=== PATIENT | male | born 1970 | race Hispanic/Latino ===

== ENCOUNTER 2023-08-26 22:08 | Emergency (ER) | payer BC, OTHER ==
[~2023-08-26] VITALS: Ht 172.7 cm; Wt 79.4 kg
[2023-08-26] MEDS ORDERED: AMIODARONE 150MG VIAL IV ONE (22:09)
[2023-08-26 22:20] VITALS: O2SAT 90
[2023-08-26] MEDS: NOREPINEPHRIN 4MG/NS 250ML 250 ML IV SCH (22:30)
[2023-08-26 22:31] LABS: ABG BASE EXCESS -18.3 mmol/L (-2.0-3.0); ABG HCO3 12.3 mmol/L (21.0-28.0); ABG OXYGEN SATURATION 85.1 % (95.0-99.0); ABG PCO2 48 mmHg (35-48); ABG PH 7.032 (7.35-7.450); CARBON MONOXIDE 0.2; DEVICE COMMENT BUFFA; HHb 14.8; PO2, ARTERIAL BG 70.6 mmHg (83.0-108.0); VENT MODE, BG ACVC (ROOM AIR)
[2023-08-26 22:33] LABS: BASOPHILS # (AUTO) 0.06 K/uL (0.00-0.20); BASOPHILS % (AUTO) 0.5 % (0.0-5.0); EOSINOPHILS # (AUTO) 0.01 K/uL (0.00-0.70); EOSINOPHILS % (AUTO) 0.1 % (0.0-8.0); HEMATOCRIT 48.4 % (42-54); IMMATURE GRANULOCYTE ABSOLUTE 0.11 K/uL (0-1); LYMPHOCYTES # (AUTO) 4.4 K/uL (1.0-4.8); LYMPHOCYTES % (AUTO) 37.6 % (21.0-51.0); MEAN CORPUSCULAR HEMOGLOBIN 29.7 pg (27.0-33.0); MEAN CORPUSCULAR HGB CONC 33.3 g/dL (32.0-36.0); MEAN CORPUSCULAR VOLUME 89.1 fL (79-99); MONOCYTES % (AUTO) 8.5 % (3.0-13.0); NEUTROPHILS # (AUTO) 6.1 K/uL (1.8-7.7); NEUTROPHILS % (AUTO) 52.4 % (40.0-77.0); PLATELET COUNT (AUTO) 418 K/uL (130-400); RED BLOOD CELL COUNT(AUTO) 5.43 MIL/uL (4.50-6.20); RED CELL DISTRIBUTION WIDTH 13.3 % (11.0-15.5); WHITE BLOOD COUNT (AUTO) 11.7 K/uL (4.8-10.8)
[2023-08-26 22:40] LABS: CARBON DIOXIDE 27 mmol/L (21-32); CHLORIDE 101 mmol/L (101-111); CREATININE 1.4 mg/dL (0.5-1.3); GLOMERULAR FILTR. RATE CALC 59 mL/min (>90); GLUCOSE,RANDOM 141 mg/dL (70-105); SODIUM SERUM 140 mmol/L (136-145); UREA NITROGEN, BLOOD 15 mg/dL (7-18)
[2023-08-26 22:45] LABS: ALANINE AMINOTRANSFERASE 23 U/L (12-78); ALBUMIN 3.8 g/dL (3.5-5.0); ALCOHOL, BLOOD < 3 mg/dL (0-10); ASPARTATE AMINOTRANSFERASE 17 U/L (10-37); BILIRUBIN,TOTAL 0.4 mg/dL (0.2-1.0); CREATINE KINASE, TOTAL 89 U/L (21-232); TOTAL PROTEIN, SERUM 8.1 g/dL (6.0-8.3)
[2023-08-26 22:52] LABS: INR <= 0.93 (0.85-1.15); PROTHROMBIN TIME 10.5 SEC (9.6-11.6)
[2023-08-26 22:53] LABS: PARTIAL THROMBOPLASTIN TIME 25.2 SEC (26.3-35.5)
[2023-08-26] MEDS: CEFTRIAXONE 2GM VIAL IVPB ONE (23:00)
[2023-08-26] MEDS: MIDAZOLAM HCL 1 MG/ML 2ML VIAL IVP ONE ×2 (23:00→23:30)
[2023-08-26 23:08] LABS: MAGNESIUM 2.3 mg/dL (1.80-2.40); THYROID STIMULATING HORMONE 7.86 uIU/mL (0.36-3.74)
[2023-08-26 23:10] LABS: B-TYPE NATRIURETIC PEPTIDE 21 pg/mL (0-100)
[2023-08-26 23:17] LABS: ABG HCO3 15.9 mmol/L (21.0-28.0); ABG PCO2 39 mmHg (35-48); PO2, ARTERIAL BG 94.7 mmHg (83.0-108.0); VENT MODE, BG ACVC (ROOM AIR)
[2023-08-26] MEDS: LEVETIRACETAM 500 MG/5 ML SD VIAL IV SCH (23:20)
[2023-08-26] MEDS: MIDAZOLAM HCL 50 MG in 0.9%NACL 50ML 50 ML IV SCH (23:30)
[2023-08-26 23:56] LABS: AMPHET/METH SCREEN,URINE POSITIVE (NEGATIVE); BARBITURATE SCREEN, URINE NEGATIVE (NEGATIVE); BENZODIAZEPINES SCREEN,URINE NEGATIVE (NEGATIVE); CANNABINOID SCREEN,URINE NEGATIVE (NEGATIVE); COCAINE SCREEN,URINE NEGATIVE (NEGATIVE); OPIATE SCREEN,URINE NEGATIVE (NEGATIVE); PHENCYCLIDINE SCREEN,URINE NEGATIVE (NEGATIVE)
[2023-08-27] VITALS (12 sets, daily range): BP systolic 82–143; BP diastolic 40–103; PULSE 102–118; RESP 14–28; O2SAT 100
[2023-08-27] LABS: ADD UA MICROSCOPIC YES; APPEARANCE,URINE CLOUDY (CLEAR); BILIRUBIN,URINE NEGATIVE (NEGATIVE); COLOR,URINE LIGHT-YELLOW (YELLOW); GLUCOSE, URINE (UA) >=1000 mg/dL (NEGATIVE); KETONES,URINE 5 mg/dL (NEGATIVE); LEUKOCYTE ESTERASE ,URINE NEGATIVE Leu/uL (NEGATIVE); NITRATE,URINE NEGATIVE (NEGATIVE); OCCULT BLOOD,URINE MODERATE (NEGATIVE); PH,URINE 6.5 (5.0-8.0); PROTEIN,URINE 300 mg/dL (NEGATIVE); UROBILINOGEN,URINE 0.2 mg/dL (0.2-1.0)
[2023-08-27 00:02] LABS: BACTERIA,URINE FEW /HPF (None Seen); MUCUS,URINE RARE LPF (None Seen); RBC,URINE 26-50 /HPF (0-1); SQUAMOUS EPITHELIAL CELL,UR RARE /HPF (0-2)
[2023-08-27] MEDS: [UNRECOGNIZED DRUG - OTHER] IV ONE (00:04)
[2023-08-27] MEDS: PROPOFOL 1000 MG/100 ML IV STA (00:05)
[2023-08-27] MEDS: CEFTRIAXONE 2GM VIAL ONE (00:06)
[2023-08-27] MEDS: MIDAZOLAM HCL 1 MG/ML 2ML VIAL ONE ×2 (00:06)
[2023-08-27] MEDS: CEFTRIAXONE 500MG VIAL ONE (00:06)
[2023-08-27] MEDS: LEVETIRACETAM 500 MG/5 ML SD VIAL IV ONE (00:07)
[2023-08-27] MEDS: PROPOFOL 1000 MG/100 ML 100 ML IV ONE (00:07)
[2023-08-27] MEDS: FOSPHENYTOIN SODIUM 100 MG/2 ML VIAL IV ONE (00:07)
[2023-08-27] MEDS ORDERED: IOHEXOL 350 MG/ML 100ML INFUS..BTL IV ONE (00:51)
[2023-08-27] MEDS: ETOMIDATE 20MG VIAL IVP ONE (01:51)
[2023-08-27] MEDS: LEVETIRACETAM 500 MG/5 ML SD VIAL IV SCH (01:58)
[2023-08-27] MEDS ORDERED: ROCURONIUM BROMIDE IV SCH (02:00)
[2023-08-27] MEDS ORDERED: [UNRECOGNIZED DRUG - OTHER] IV SCH (02:00)
[2023-08-27] MEDS ORDERED: METRONIDAZOLE 500MG/100ML BAG 100 ML IVPB SCH (06:00)
== END 2023-08-27 04:10 | disposition short-term general hospital (02) ==
LOC: EDH 22:08
DX: R56.9 Unspecified convulsions (principal); J18.9 Pneumonia, unspecified organism; J96.90 Respiratory failure, unspecified, unspecified whether with hypoxia or hypercapnia; E87.20 Acidosis, unspecified; Z86.74 Personal history of sudden cardiac arrest; Z90.49 Acquired absence of other specified parts of digestive tract; Z98.890 Other specified postprocedural states; Z88.8 Allergy status to other drugs, medicaments and biological substances
CPT/HCPCS: 36556; 82947; 84443; 82550; 83735; 84484; 80053; 82803 ×2; 83880; 80305; 83690; 85025; 85610; 85730; 87040 ×2; 87088; 36415 ×2; 70450; 71270; 99291; 92950; 31500; 82435; 84132; 84295; 71045 ×2; 96365; 96367; 93005; 94002; 85018; 36600; 81001; 96366; 94003; 83605 ×3; J1953 ×2; J3490 ×4; J7070; J0696 ×2; J0171; Q2009; J2250 ×2; J2704; J0282; A9900; Q9967